=== PATIENT | female | born 1975 | race American Indian/Alaskan Native ===

== ENCOUNTER 2017-04-03 10:36 | Outpatient (CLI) | payer MEDICAID, OTHER ==
--- NOTE | 2017-04-03 15:58 | Mammography Report ---
BILATERAL DIGITAL SCREENING MAMMOGRAM with CAD: 04/03/17 CLINICAL: Routine screening. COMPARISON:None available. However, a prior mammogram was apparently done at [facility] in December 2015. FINDINGS: The breasts are heterogeneously dense, which may obscure small masses. Bilateral asymmetries require comparison with the prior mammogram or additional imaging. IMPRESSION: Bilateral asymmetries requiring further evaluation. BI-RADS CATEGORY: 0 -- Additional Evaluation Required RECOMMENDATION: Comparison with a previous mammogram. We will attempt to obtain a prior mammogram. If we do not obtain a prior mammogram for comparison within 30 days, a revised report will be issued recommending a recall for additional imaging. Please be advised that the patient should not schedule an appointment for return until adequate time (at least 2 weeks) has passed for us to obtain the prior mammogram. ACR BI-RADS MAMMOGRAPHIC CODES: 0 = Needs additional imaging evaluation; 1 = Negative; 2 = Benign; 3 = Probably benign; 4 = Suspicious; 5 = Malignant; 6 = Known biopsy-proven malignancy COMMENT: 1. Dense breast tissue, i.e., adenosis, fibrocystic changes, etc., may obscure an underlying neoplasm. 2. Approximately 10% of cancers are not detected with mammography. 3. A negative mammography report should not delay biopsy if a clinically suspicious mass is present. COMMENT: Patient follow-up letters are generated via our [employer] application.
== END 2017-04-03 10:37 | disposition home or self-care (01) ==
LOC: SPVWC 10:36
PROVIDERS: ATTEND Family Medicine
DX: Z12.31 Encounter for screening mammogram for malignant neoplasm of breast (principal)
CPT/HCPCS: 77067

== ENCOUNTER 2017-05-03 14:39 | Outpatient (CLI) | payer OTHER ==
--- NOTE | 2017-05-03 15:26 | Mammography Report ---
BILATERAL DIGITAL DIAGNOSTIC MAMMOGRAM : 05/03/17 14:39:00 CLINICAL: Recalled for bilateral asymmetries. COMPARISON:04/03/17 screening FINDINGS: Bilateral additional mammographic views were performed and are negative. IMPRESSION: Negative Mammogram. BI-RADS CATEGORY: 1 -- Negative RECOMMENDATION: Routine mammographic screening in one year. ACR BI-RADS MAMMOGRAPHIC CODES: 0 = Needs additional imaging evaluation; 1 = Negative; 2 = Benign; 3 = Probably benign; 4 = Suspicious; 5 = Malignant; 6 = Known biopsy-proven malignancy COMMENT: 1. Dense breast tissue, i.e., adenosis, fibrocystic changes, etc., may obscure an underlying neoplasm. 2. Approximately 10% of cancers are not detected with mammography. 3. A negative mammography report should not delay biopsy if a clinically suspicious mass is present. COMMENT: Patient follow-up letters are generated via our [employer] application.
== END 2017-05-03 14:40 | disposition home or self-care (01) ==
LOC: SPVWC 14:39
PROVIDERS: ATTEND Family Medicine
DX: R92.8 Other abnormal and inconclusive findings on diagnostic imaging of breast (principal)
CPT/HCPCS: 77066

== ENCOUNTER 2019-06-09 08:19 | Outpatient (CLI) | payer OTHER ==
--- NOTE | 2019-06-09 15:49 | Mammography Report ---
DIGITAL SCREENING MAMMOGRAM WITH CAD, 06/09/2019 INDICATION: Routine screening mammography. TECHNIQUE: Digital bilateral 2D mammography was obtained in the craniocaudal and mediolateral obliq ue projections. This examination was interpreted with the benefit of Computer-Aided Detection analysi s. COMPARISON: 05/03/2017 FINDINGS: Breast Density: The breasts are heterogeneously dense, which may obscure small masses. A right upper asymmetry on the MLO view requires additional imaging. No architectural distortion or s uspicious calcifications of the right breast. There is no evidence of dominant mass, suspicious calci fications or architectural distortion in the left breast. IMPRESSION: Right asymmetry requiring additional workup. Recommend recall for right lateral and spot compression MLO views and right breast ultrasound if needed. Follow up recommendation: Special View: Spot Category 0: Incomplete. Needs additional imaging evaluation and/or prior mammograms for comparison. A "normal" or negative report should not discourage follow up or biopsy of a clinically significant f inding. A written summary of these findings will be mailed to the patient. The patient will be entered into a mammography reporting system which will generate a reminder letter for the patient's next appointmen t at the appropriate interval. The [employer] recommends yearly mammograms starting at age 40 and continuing as l renetta as a woman is in good health. Breast MRI is recommended for women with an approximate 20-25% or greater lifetime risk of breast cancer, including women with a strong family history of breast or ova xander cancer or who have been treated for Hodgkin's disease. Signer Name: Jeffrey Castelan MD Signed: 06/09/2019 3:45 PM Workstation Name: [id number]
== END 2019-06-09 08:20 | disposition home or self-care (01) ==
LOC: SPVWC 08:19
PROVIDERS: ATTEND Nurse Practitioner Family
DX: Z12.39 Encounter for other screening for malignant neoplasm of breast (principal)
CPT/HCPCS: 77067

== ENCOUNTER 2019-07-09 13:55 | Outpatient (CLI) | payer OTHER ==
--- NOTE | 2019-07-09 15:12 | Ultrasound Report ---
RIGHT DIGITAL DIAGNOSTIC MAMMOGRAM WITH CAD 07/09/2019 RIGHT LIMITED BREAST ULTRASOUND INDICATION: Recall to evaluate a mammographic asymmetry. F/U abnormal mammogram TECHNIQUE: Digital left mammographic imaging was performed. Spot compression views were obtained. Th is examination was interpreted with the benefit of Computer-Aided Detection (CAD) analysis. COMPARISON: 06/09/2019 FINDINGS: Breast Density: The breasts are heterogeneously dense, which may obscure small masses. MAMMOGRAPHIC FINDINGS: Lateral medial and spot magnification MLO views were performed. An ill-defined asymmetry persists in the upper breast. ULTRASOUND FINDINGS: Targeted ultrasound evaluation was performed of the area of interest. Ultrasou nd of the upper right breast was performed and demonstrated a benign cyst at 10:00 7 cm from the nipp le. It measures 4 x 3 x 3 mm and correlates with the mammographic asymmetry. No solid mass or suspici ous shadowing. IMPRESSION: No mammographic evidence of malignancy. A benign cyst at 10:00 7 cm from the nipple. Follow up recommendation: Routine yearly BI-RADS Category 2: Benign. A "normal" or negative report should not discourage follow up or biopsy of a clinically significant f inding. A written summary of these findings will be mailed to the patient. The patient will be entered into a mammography reporting system which will generate a reminder letter for the patient's next appointmen t at the appropriate interval. According to the [employer], yearly mammograms are recommended starting at age 40 and continuing as long as a woman is in good health. Breast MRI is recommended for women with an alec roximately 20-25% or greater lifetime risk of breast cancer, including women with a strong family his tory of breast or ovarian cancer and women who have been treated for Hodgkin's disease. Signer Name: Jeffrey Castelan MD Signed: 07/09/2019 3:08 PM Workstation Name: [id number]
== END 2019-07-09 13:56 | disposition home or self-care (01) ==
LOC: SPVWC 13:55
PROVIDERS: ATTEND Family Medicine
DX: N60.01 Solitary cyst of right breast (principal); N64.89 Other specified disorders of breast

== ENCOUNTER 2020-12-02 13:24 | Outpatient (CLI) | payer OTHER ==
--- NOTE | 2020-12-03 10:11 | Mammography Report ---
DIGITAL SCREENING MAMMOGRAM WITH CAD, 12/02/2020 CLINICAL INFORMATION / INDICATION: Routine screening mammography. SCREENING MAMMO TECHNIQUE: Digital bilateral 2D mammography was obtained in the craniocaudal and mediolateral obliqu e projections. This examination was interpreted with the benefit of Computer-Aided Detection analysis . COMPARISON: 06/09/2019, 07/06/2015 FINDINGS: Breast Density: The breasts are heterogeneously dense, which may obscure small masses. No dominant mass, suspicious calcifications, or architectural distortion in either breast. Surgical scar is noted on the left. IMPRESSION: No mammographic evidence of malignancy. Follow up recommendation: Routine yearly BI-RADS Category 2: Benign. A "normal" or negative report should not discourage follow up or biopsy of a clinically significant f inding. A written summary of these findings will be mailed to the patient. The patient will be entered into a mammography reporting system which will generate a reminder letter for the patient's next appointmen t at the appropriate interval. The [employer] recommends yearly mammograms starting at age 40 and continuing as l renetta as a woman is in good health. Breast MRI is recommended for women with an approximate 20-25% or greater lifetime risk of breast cancer, including women with a strong family history of breast or ova xander cancer or who have been treated for Hodgkin's disease. Signer Name: Gildardo Deng MD Signed: 12/03/2020 10:06 AM Workstation Name: [id number]
== END 2020-12-02 13:25 | disposition home or self-care (01) ==
LOC: SPVWC 13:24
PROVIDERS: ATTEND Family Medicine
DX: Z12.31 Encounter for screening mammogram for malignant neoplasm of breast (principal)
CPT/HCPCS: 77067